=== PATIENT | female | born 1960 | race Caucasian/White ===

== ENCOUNTER → 2020-04-08 12:15 | Outpatient (CLI) | payer BC, SELFPAY ==
--- NOTE | ~2020-04-08 | MM_ITS ---
EXAMINATION: MM screening [facility] HISTORY: Screening TECHNIQUE: Craniocaudal and mediolateral oblique 3-D tomosynthesis images were obtained and synthetic 2-D images were generated. CAD analysis was submitted and interpreted. COMPARISON: Comparison to multiple prior studies sequentially, with oldest reviewed study dated 08/16. BREAST PARENCHYMAL COMPOSITION: There are scattered areas of fibroglandular density. FINDINGS: There is no evidence of suspicious mass, calcification, or architectural distortion to sugg est malignancy in either breast. There has been no suspicious interval change. IMPRESSION: 1. No mammographic evidence of malignancy. 2. Recommend routine screening mammography in one year. BI-RADS Category 1: Negative Reviewed, dictated and finalized at location A.
== END ==
PROVIDERS: PCP Internal Medicine; Visit Provider Obstetrics & Gynecology Gynecology
DX: Z12.31 Encounter for screening mammogram for malignant neoplasm of breast (principal)
CPT/HCPCS: 77063; 77067

== ENCOUNTER 2020-10-14 12:27 | Outpatient (NON) | payer BC, SELFPAY ==
[2020-10-15 13:29] LABS: SARS-CoV-2 RNA PCR Positive
== END 2020-10-14 12:28 ==
LOC: ANHCOVIDDT 12:28
PROVIDERS: PCP Internal Medicine; Visit Provider Internal Medicine
DX: U07.1 COVID-19 (principal)
CPT/HCPCS: C9803; U0003; U0005

== ENCOUNTER 2020-10-18 07:41 | Outpatient (RCR) | payer BC, SELFPAY ==
[2020-10-18] MEDS: diphenhydrAMINE HCl CAP 25 MG CAPSULE PO (13:36)
[2020-10-18] MEDS: FAMOTIDINE 20 MG TABLET PO (13:36)
[2020-10-18] MEDS: ACETAMINOPHEN 325 MG TABLET 650 MG PO (13:36)
[2020-10-18 13:53] VITALS: BP 118/66; PULSE 85; RESP 18; TEMP 37.6; O2SAT 98
[2020-10-18 15:39] VITALS: BP 114/64; PULSE 72; O2SAT 98
--- NOTE | 2020-10-19 15:42 | PC.NURSE ---
Patient had no side effects from the Bamlanivimab and states she feels slightly better.
== END 2020-10-26 15:34 ==
LOC: AMCINF 07:41
PROVIDERS: PCP Internal Medicine; Visit Provider Internal Medicine
DX: Z23 Encounter for immunization (principal); U07.1 COVID-19
CPT/HCPCS: A9270; J7050; M0239; Q0239

== ENCOUNTER → 2021-02-24 08:21 | Outpatient (CLI) | payer BC, SELFPAY ==
--- NOTE | ~2021-02-24 | CT_ITS ---
EXAMINATION: CT pelvis wo con DATE: 02/24/2021 08:33 INDICATION: Incisional hernia without obstruction or gangrene. Left lower quadrant abdominal pain. TECHNIQUE: Computed tomography (CT) of the pelvis was performed without intravenous contrast. Automat ed exposure control and iterative reconstruction technique were employed. The dose-length product was 580.00 mGy-cm. COMPARISON: None FINDINGS: There is diverticulosis of the colon without evidence of diverticulitis. There are no patho logically enlarged lymph nodes. There is no free intraperitoneal fluid. There is no hernia. Osteitis pubis is noted. 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 IMPRESSION: 1. No etiology for the patient's symptoms. Reviewed, dictated and finalized at location A.
== END ==
PROVIDERS: PCP Internal Medicine; Visit Provider Surgery
DX: K43.2 Incisional hernia without obstruction or gangrene (principal)
CPT/HCPCS: 72192

== ENCOUNTER → 2021-06-13 12:47 | Outpatient (CLI) | payer BC, SELFPAY ==
--- NOTE | ~2021-06-13 | MM_ITS ---
EXAMINATION: MM screening [facility] BI [facility] HISTORY: Screening TECHNIQUE: Craniocaudal and mediolateral oblique 3-D tomosynthesis images were obtained and synthetic 2-D images were generated. CAD analysis was submitted and interpreted. COMPARISON: Comparison to multiple prior studies sequentially, with oldest reviewed study dated 03/2017. BREAST PARENCHYMAL COMPOSITION: There are scattered areas of fibroglandular density. FINDINGS: There is no evidence of suspicious mass, calcification, or architectural distortion to sugg est malignancy in either breast. There has been no suspicious interval change. IMPRESSION: 1. No mammographic evidence of malignancy. 2. Recommend routine screening mammography in one year. BI-RADS Category 1: Negative Reviewed, dictated and finalized at location A.
== END ==
PROVIDERS: Visit Provider Obstetrics & Gynecology Gynecology
DX: Z12.31 Encounter for screening mammogram for malignant neoplasm of breast (principal)
CPT/HCPCS: 77063; 77067

== ENCOUNTER → 2021-09-29 00:56 | Outpatient (CLI) | payer BC, SELFPAY ==
[2021-09-30 18:18] LABS: SARS-CoV-2 RNA PCR Negative
== END ==
PROVIDERS: PCP Internal Medicine; Visit Provider Physician Assistant
DX: R09.89 Other specified symptoms and signs involving the circulatory and respiratory systems (principal); Z20.822 Contact with and (suspected) exposure to COVID-19
CPT/HCPCS: C9803; U0003; U0005

== ENCOUNTER → 2021-10-09 11:05 | Outpatient (CLI) | payer BC, SELFPAY ==
--- NOTE | ~2021-10-09 | XR_ITS ---
EXAMINATION: XR chest 2V 10/09/2021 11:25 INDICATION: Chest pain PROCEDURE: 2 view chest COMPARISON: No prior studies for comparison. FINDINGS: The lungs are clear. The cardiomediastinal silhouette is within normal limits. There are no pleural effusions. There is no pneumothorax suspected. IMPRESSION: 1: NO ACUTE CARDIOPULMONARY DISEASE. Reviewed, dictated and finalized at location B. [employer]
== END ==
PROVIDERS: PCP Internal Medicine; Visit Provider Internal Medicine
DX: R07.89 Other chest pain (principal)
CPT/HCPCS: 71046

== ENCOUNTER → 2021-10-30 12:12 | Outpatient (CLI) | payer BC, SELFPAY ==
--- NOTE | ~2021-10-30 | XR_ITS ---
XR sternum min 2V DATE: 10/30/2021 12:42 INDICATION: Acquired deformity of chest and rib, right upper sternum TECHNIQUE: Lateral and oblique views COMPARISON: 10/05/2021 2 view chest FINDINGS: No sternal fracture or bone destruction is evident. Alignment appears intact at the sternoc lavicular joints. IMPRESSION: No significant abnormality Reviewed, dictated and finalized at location B. ADVISOR IMPRESSION: No significant abnormality
== END ==
PROVIDERS: PCP Internal Medicine; Visit Provider Internal Medicine
DX: M95.4 Acquired deformity of chest and rib (principal)
CPT/HCPCS: 71120

== ENCOUNTER → 2021-11-17 10:05 | Outpatient (CLI) | payer BC, SELFPAY ==
--- NOTE | ~2021-11-17 | DEXA_ITS ---
Bone Density Report Name: SHAILA NUNEZ Age: 61 Sex: Female Ethnicity: White Date of : 1960 Indication: postmenopausal; screening for osteoporosis; Referring Provider: FLOR REIS Study: Bone densitometry was performed. Exam Date: November 17, 2021 Accession number: [id number] Bone Density: Region BMD T-score Z-score Classification AP Spine (L1-L4) 1.059 0.1 1.6 Normal Femoral Neck (Left) 0.941 0.8 2.2 Normal Total Hip (Left) 1.008 0.5 1.6 Normal Femoral Neck (Right) 0.818 -0.3 1.1 Normal Total Hip (Right) 0.941 0.0 1.0 Normal Total Hip Mean 0.975 0.3 1.3 Normal World Health Organization criteria for BMD impression classify patients as: Normal (T-score at or above -1.0), Osteopenia (T-score between -1.0 and -2.5), or Osteoporosis (T-score at or below -2.5). 10-year Fracture Risk: FRAX not reported because: All T-scores for Spine Total, Hip Total, Femoral Neck at or above -1.0 Previous Exams: Region Exam Age BMD T-score BMD Change BMD Change Date g/cm2 vs Baseline vs Previous AP Spine(L1-L4) 11/17/2021 61 1.059 0.1 0.012 0.021 09/27/2017 57 1.038 -0.1 -0.009 0.010 08/05/2014 54 1.028 -0.2 -0.019 -0.003 07/06/2011 51 1.031 -0.1 -0.016 -0.016 02/25/2008 47 1.047 0.0 Total Hip(Left) 11/17/2021 61 1.008 0.5 0.035* -0.097* 09/27/2017 57 1.106 1.3 0.132* 0.090* 08/05/2014 54 1.016 0.6 0.042* -0.059* 07/06/2011 51 1.075 1.1 0.101* 0.101* 02/25/2008 47 0.974 0.3 Total Hip(Right) 11/17/2021 61 0.941 0.0 0.004 -0.051* 09/27/2017 57 0.992 0.4 0.055* -0.001 08/05/2014 54 0.993 0.4 0.056* -0.032* 07/06/2011 51 1.025 0.7 0.088* 0.088* 02/25/2008 47 0.937 0.0 *Denotes significance at 95% confidence level, LSC for AP Spine = 0.022 g/cm2, LSC for Total Hip = 0.027 g/cm2 Clinical Information Provided by Patient: Has used the following medications: Vitamin D Patient maximum height was 59.8 Menopause Age: 46 Drinks caffeinated beverages Onset of menses at age 12 Number of children 3 Impression: The patient has normal bone mass. The BMD for the Total Hip(Left) decreased, changing by -0.097 since the last DXA exam. The BMD for the Total Hip(Right)
== END ==
PROVIDERS: Visit Provider Obstetrics & Gynecology Gynecology
DX: Z78.0 Asymptomatic menopausal state (principal)
CPT/HCPCS: 77080

== ENCOUNTER → 2021-12-22 13:55 | Outpatient (CLI) | payer BC, SELFPAY ==
--- NOTE | ~2021-12-22 | US_ITS ---
EXAMINATION: US soft tissue UE RT DATE: 12/22/2021 14:10 INDICATION: Right clavicular/sternal growth. TECHNIQUE: Multiple grayscale and Doppler ultrasound images of the region of concern at the right marcelo rnoclavicular joint were obtained. COMPARISON: None FINDINGS: Subcutaneous tissues surrounding the right sternoclavicular joint appear normal with no abnormal mass es or fluid collections. There is no evident capsular hypertrophy or joint effusion at the sternoclav icular joint. IMPRESSION: 1. Unremarkable ultrasound of the right sternoclavicular joint with no abnormal masses or fluid colle ctions identified. Reviewed, dictated and finalized at location B. IMPRESSION: 1. Unremarkable ultrasound of the right sternoclavicular joint with no abnormal masses or fluid collections identified.
== END ==
PROVIDERS: PCP Internal Medicine; Visit Provider Nurse Practitioner
DX: R22.2 Localized swelling, mass and lump, trunk (principal)
CPT/HCPCS: 76882

== ENCOUNTER 2022-01-01 00:24 | Day surgery (SDC) | payer BC, SELFPAY ==
[2021-12-15 14:29] VITALS: BMI 32.1
[2022-01-01 08:12] VITALS: BP 147/78; PULSE 95; RESP 20; TEMP 37.3; O2SAT 99
--- NOTE | 2022-01-01 08:29 | WPDANESEPPF ---
Anes - Initial Pre Proc Eval Procedure: Operation Date: 01/01/22 09:15 Proposed Procedures p Colonoscopy - Sukhjinder Cotton MD Date/Time: 01/01/22 08:29 Surgeon: Sukhjinder Cotton MD Pre Op Diagnosis: melena Patient Data Age: 61 Gender: F Height: 1.5 m Weight: 78.5 kg Last Vital Signs Temp 37.3 C 01/01/22 08:12 Pulse 95 01/01/22 08:12 Resp 20 01/01/22 08:12 BP 147/78 H 01/01/22 08:12 Pulse Ox 99 01/01/22 08:12 Allergies Allergy/AdvReac Type Severity Reaction Status Date / Time Penicillins Allergy Mild Unknown Verified 01/01/22 08:11 telithromycin Allergy Mild Hives Verified 01/01/22 08:11 Home Medications Medication Instructions Recorded Confirmed Type multivitamin 1 tablet PO DAILY 09/24/19 12/15/21 History cholecalciferol (vitamin D3) 25 25 mcg PO DAILY 04/11/20 12/15/21 History mcg (1,000 unit) capsule ascorbate calcium (vitamin C) 500 mg PO DAILY 10/18/20 12/15/21 History [[place]-C] ergocalciferol (vitamin D2) 1,250 mcg PO 2XW 10/18/20 12/15/21 History [Vitamin D2] lactobacillus combination no.4 3 cell PO DAILY 10/18/20 12/15/21 History [Probiotic] esomeprazole magnesium 40 mg 40 mg PO DAILY #90 cap 02/01/21 12/15/21 Rx capsule,delayed release atorvastatin 20 mg tablet 20 mg PO DAILY #90 tablet 04/10/21 12/15/21 Rx ezetimibe 10 mg tablet 10 mg PO DAILY #90 tablet 04/10/21 12/15/21 Rx fluticasone propionate 50 2 spray NASAL DAILY PRN #47.4 ml 04/17/21 12/15/21 Rx mcg/actuation nasal spray,suspension Patient hx anesthesia problems: none Family hx anesthesia problems: none Results Review: All pre-operative results and documents have been reviewed as part of the pre-operative evaluation. [facility] Past Medical History Medical History (Updated 01/01/22 @ 08:30 by Willian Mcdonough MD) Colonic polyp HTN (hypertension) Surgical History Surgical History S/P section Family History Family History Sibling Family history of elevated blood lipids Patient's sister is in good health Patient's brother is in good health Mother Patient's mother is Heart attack Father No problems noted. Unknown Diabetes mellitus Heart disease Hypertension Social History Social History Smoking status: Never smoker Second hand tobacco smoke exposure: No Alcohol intake: never Substance use: never Substance use type: does not use Living arrangements: with family Spiritual care concerns: No Anes - Eval Final PreProcedure Day of Procedure 01/01/22 08:29 Results Review: All pre-operative results and documents have been reviewed as part of the pre-operative evaluation. Informed Consent: The patient's anesthetic plan and its attendant risks and benefits were discussed with the patient/family/POA. Questions were solicited and answers provided to the satisfaction of the patient/family/POA.
[2022-01-01] MEDS: LACTATED RINGERS 1,000 ML 150 ML IV CONT (08:34)
--- NOTE | 2022-01-01 08:58 | PM.HPGS ---
History of Present Illness History of Present Illness Consent: Risks, benefits, and alternatives have been discussed and questions answered. Patient agrees to proceed with procedure. Chief complaint: melena Narrative: Nicole Cortez is a 61 year old female with colon polyp in 2017, recent had episode of blood in stool Review of Systems Constitutional: Constitutional: Denies headache(s) and Denies weakness Eyes: Eyes: Denies blurry vision ENT: Reports Normal hearing present, Denies headache(s) and Denies neck pain Cardiovascular: Cardiovascular: Denies chest pain and Denies dyspnea Respiratory: Respiratory: Denies dyspnea Gastrointestinal: Gastrointestinal: Reports no additional gastrointestinal complaints Genitourinary: Genitourinary: Denies dysuria Musculoskeletal: Musculoskeletal: Denies neck pain Integumentary/Breasts: Skin/Breast: Denies dry skin Neurologic: Reports Normal hearing present, Denies headache(s) and Denies weakness Psychiatric: Psychiatric: Denies anxiety Endocrine: Endocrine: Denies change in body appearance Hematologic/Lymphatic: Hematologic/Lymphatic: Denies easy bleeding Allergic/Immunologic: Allergic/Immunologic: Denies urticaria PMFSH Past Medical History Medical History (Updated 01/01/22 @ 08:59 by Sukhjinder Cotton MD) Colonic polyp HTN (hypertension) Surgical History Surgical History S/P section Family History Family History Sibling Family history of elevated blood lipids Patient's sister is in good health Patient's brother is in good health Mother Patient's mother is Heart attack Father No problems noted. Unknown Diabetes mellitus Heart disease Hypertension Social History Social History Smoking status: Never smoker Second hand tobacco smoke exposure: No Alcohol intake: never Substance use: never Substance use type: does not use Living arrangements: with family Spiritual care concerns: No Meds Home Medications and Allergies Home Medications Medication Instructions Recorded Confirmed Type multivitamin 1 tablet PO DAILY 09/24/19 12/15/21 History cholecalciferol (vitamin D3) 25 25 mcg PO DAILY 04/11/20 12/15/21 History mcg (1,000 unit) capsule ascorbate calcium (vitamin C) 500 mg PO DAILY 10/18/20 12/15/21 History [[place]-C] ergocalciferol (vitamin D2) 1,250 mcg PO 2XW 10/18/20 12/15/21 History [Vitamin D2] lactobacillus combination no.4 3 cell PO DAILY 10/18/20 12/15/21 History [Probiotic] esomeprazole magnesium 40 mg 40 mg PO DAILY #90 cap 02/01/21 12/15/21 Rx capsule,delayed release atorvastatin 20 mg tablet 20 mg PO DAILY #90 tablet 04/10/21 12/15/21 Rx ezetimibe 10 mg tablet 10 mg PO DAILY #90 tablet 04/10/21 12/15/21 Rx fluticasone propionate 50 2 spray NASAL DAILY PRN #47.4 ml 04/17/21 12/15/21 Rx mcg/actuation nasal spray,suspension Allergies Allergy/AdvReac Type Severity Reaction Status Date / Time Penicillins Allergy Mild Unknown Verified 01/01/22 08:11 telithromycin Allergy Mild Hives Verified 01/01/22 08:11 Vital Signs Vital Signs - 24 hr 01/01/22 08:12 Temperature 99.1 F Pulse Rate 95 Respiratory Rate 20 Blood Pressure 147/78 H Pulse Oximetry 99 Exam Const: General: comfortable and no acute distress HENMT: General nose exam: Normal nares present Eyes: General: appearance normal, both eyes and all related structures Neck: Neck: no JVD Resp: Auscultation: clear to auscultation bilaterally Cardio: Rate: regular rate Rhythm: regular rhythm GI: Inspection: non-distended GI Palp: Yes Soft to palpation Skin: General skin exam: normal color Neuro: General: gait normal Speech: normal speech Extrem: General: normal to inspection Psych:
[2022-01-01 09:12] VITALS: BP 115/66; PULSE 71; RESP 20; O2SAT 98
[2022-01-01 09:22] VITALS: BP 140/70; PULSE 61; RESP 17; O2SAT 100
[2022-01-01 09:32] VITALS: BP 106/70; PULSE 62; RESP 18; O2SAT 100
== END 2022-01-01 09:53 | disposition home or self-care (01) ==
PROVIDERS: PCP Internal Medicine; Visit Provider Internal Medicine Gastroenterology
PROC: 0DJD8ZZ Inspection of Lower Intestinal Tract, Via Natural or Artificial Opening Endoscopic (ICD-10-PCS; CPT 45378; principal; 2022-01-01 09:15)
DX: K92.1 Melena (principal); K57.30 Diverticulosis of large intestine without perforation or abscess without bleeding; K64.8 Other hemorrhoids; Z86.010 Personal history of colon polyps; I10 Essential (primary) hypertension
CPT/HCPCS: 45378; J2704; J7120

== ENCOUNTER 2022-09-04 14:36 | Outpatient (CLI) | payer BC, SELFPAY ==
[2022-09-04 15:33] LABS: Influenza A QL RT-PCR Negative (Negative); Influenza B QL RT-PCR Negative (Negative); SARS-CoV-2 RNA PCR Positive
== END 2022-09-04 14:37 | disposition home or self-care (01) ==
LOC: ANHLAB 14:38
PROVIDERS: PCP Internal Medicine; Visit Provider Internal Medicine
DX: U07.1 COVID-19 (principal)
CPT/HCPCS: 87636

== ENCOUNTER → 2022-12-01 08:57 | Outpatient (CLI) | payer BC, SELFPAY ==
--- NOTE | ~2022-12-01 | MM_ITS ---
EXAMINATION: MM screening [facility] BI [facility] HISTORY: Screening TECHNIQUE: Craniocaudal and mediolateral oblique 3-D tomosynthesis images were obtained and synthetic 2-D images were generated. CAD analysis was submitted and interpreted. COMPARISON: Comparison to multiple prior studies sequentially, with oldest reviewed study dated 03/2017. BREAST PARENCHYMAL COMPOSITION: There are scattered areas of fibroglandular density. FINDINGS: There is no evidence of suspicious mass, calcification, or architectural distortion to sugg est malignancy in either breast. There has been no suspicious interval change. IMPRESSION: 1. No mammographic evidence of malignancy. 2. Recommend routine screening mammography in one year. BI-RADS Category 1: Negative Reviewed, dictated and finalized at location A.
== END ==
PROVIDERS: PCP Internal Medicine; Visit Provider Nurse Practitioner
DX: Z12.31 Encounter for screening mammogram for malignant neoplasm of breast (principal)
CPT/HCPCS: 77063; 77067

== ENCOUNTER 2024-06-06 10:56 | Outpatient (CLI) | payer OTHER, SELFPAY ==
--- NOTE | ~2024-06-06 | MM_ITS ---
EXAMINATION: MM screening [facility] HISTORY: Screening TECHNIQUE: Craniocaudal and mediolateral oblique 3-D tomosynthesis images were obtained and synthetic 2-D images were generated. CAD analysis was submitted and interpreted. COMPARISON: Comparison to multiple prior studies sequentially, with oldest reviewed study dated 03/2017. BREAST PARENCHYMAL COMPOSITION: Not dense: There are scattered areas of fibroglandular density. FINDINGS: There is no evidence of suspicious mass, calcification, or architectural distortion to sugg est malignancy in either breast. There has been no suspicious interval change. IMPRESSION: 1. No mammographic evidence of malignancy. 2. Recommend routine screening mammography in one year. BI-RADS Category 1: Negative Reviewed, dictated and finalized at location B.
== END 2024-06-06 10:57 | disposition home or self-care (01) ==
LOC: MICIMG 10:57
PROVIDERS: PCP Nurse Practitioner Women's Health; Visit Provider Nurse Practitioner Women's Health
DX: Z12.31 Encounter for screening mammogram for malignant neoplasm of breast (principal)
CPT/HCPCS: 77063; 77067

== ENCOUNTER 2025-06-11 10:56 | Outpatient (CLI) | payer OTHER, SELFPAY ==
--- NOTE | ~2025-06-11 | MM_ITS ---
EXAMINATION: MM screening [facility] HISTORY: Screening TECHNIQUE: Craniocaudal and mediolateral oblique 3-D tomosynthesis images were obtained and synthetic 2-D images were generated. CAD analysis was submitted and interpreted. COMPARISON: Comparison to multiple prior studies sequentially, with oldest reviewed study dated , 11/29/2018 BREAST PARENCHYMAL COMPOSITION: There are scattered areas of fibroglandular density. FINDINGS: There is no evidence of suspicious mass, calcification, or architectural distortion to suggest malignancy in either breast. IMPRESSION: 1. No mammographic evidence of malignancy. 2. Recommend routine screening mammography in one year. BI-RADS Category 1: Negative Reviewed, dictated and finalized at location B.
== END 2025-06-11 10:57 | disposition home or self-care (01) ==
LOC: MICIMG 10:57
PROVIDERS: PCP Internal Medicine; Visit Provider Obstetrics & Gynecology Gynecology
DX: Z12.31 Encounter for screening mammogram for malignant neoplasm of breast (principal)
CPT/HCPCS: 77063; 77067